=== PATIENT | female | born 1965 | race Caucasian/White ===

== ENCOUNTER 2021-04-27 06:32 | Emergency (ER) | payer MEDICARE, OTHER ==
[~2021-04-27 06:32] MED LIST: 3IN1 COMMODE; B-12 COMPL1000 MCG/1 SC; BYDUREON B2 MG/0.85 SC; EXCEDRIN EXTRA1 EACH PO; LIPITOR40 MG PO; METFORMIN HCL500 MG PO; MIRAPEX0.25 MG PO; NEURONTIN300 MG PO; PRINIVIL20 MG PO; PROZAC20 M1 PO
[2021-04-27 07:30] LABS: BASOPHIL 0.7 % (0-2); EOSINOPHIL 2.5 % (0-5); HCT 39.7 % (37.0-47.0); HGB 12.4 g/dl (12.5-16.0); LYMPHOCYTE 17.3 % (15-48); MCH 28.4 pg (25.0-31.0); MCHC 31.2 g/dL (32.0-36.0); MCV 91.1 fL (78.0-100.0); MONOCYTE 15.3 % (0-12); MPV 9.3 fL (6.0-9.5); NRBC 0; PLT 189 K/uL (150-400); RBC 4.36 M/uL (4.20-5.40); RDW 13.1 % (11.5-14.0); WBC 4.5 K/uL (4.0-10.5)
[2021-04-27 08:04] LABS: BUN/CREAT RATIO (CALC) 16.7 RATIO; CREATININE 0.84 mg/dL (0.51-0.95); POTASSIUM 3.2 mmol/L (3.5-5.1)
[2021-04-27] MEDS ORDERED: AZITHROMYCIN250 MG PO (09:36)
[2021-04-27] MEDS ORDERED: PREDNISONE 20MG20 MG PO (09:36)
[2021-04-27] MEDS ORDERED: VENTOLIN HFA IN18 GM INH (09:37)
== END 2021-04-27 10:50 | disposition home or self-care (01) ==
LOC: FER 06:32
PROVIDERS: Emergency Medicine Emergency Medical Services
DX: U07.1 COVID-19 (principal); J44.9 Chronic obstructive pulmonary disease, unspecified; R91.1 Solitary pulmonary nodule; E11.40 Type 2 diabetes mellitus with diabetic neuropathy, unspecified; I10 Essential (primary) hypertension; F17.200 Nicotine dependence, unspecified, uncomplicated; Z79.84 Long term (current) use of oral hypoglycemic drugs
CPT/HCPCS: 36415; 36600; 71045; 71275; 80048; 82728; 82803; 85025; 85379; 93005; 94664; J1100; J1885; J2270; J7030